=== PATIENT | male | born 1940 | race Caucasian/White ===

== ENCOUNTER → 2017-12-16 08:31 | Outpatient (CLI) | payer MEDICARE, SELFPAY ==
[2017-12-16 10:19] LABS: Add Manual Diff / Slide Review NO; Basophils Percent Auto 0.8 % (0-2); Eosinophils Percent Auto 6.1 % (2-4); Hemoglobin 14.1 g/dL (13.5-17.5); Lymphocytes Percent Auto 21.9 % (25-40); Mean Corpuscular HGB Conc 35.2 % (30-36); Mean Corpuscular Hemoglobin 33.5 PG (26-34); Mean Corpuscular Volume 95.3 fL (80-100); Monocytes Percent Auto 7.1 % (3-14); Neutrophils Absolute Auto 3800 /uL (3000-5900); Neutrophils Percent Auto 64.1 % (50-75); Platelet Count 205 X10^3/uL (150-400); Red Cell Distribution Width 13.8 % (11.6-14.8); White Blood Cell Count 5.9 X10^3/uL (4.5-11.0)
[2017-12-16 10:55] LABS: Appearance Urine UA CLEAR; Bilirubin Urine UA NEGATIVE (NEGATIVE); Blood Urea Nitrogen 18 mg/dL (9-20); Carbon Dioxide 31 mmol/L (22-32); Chloride 103 mmol/L (98-107); Color Urine UA YELLOW; Estimated Glomerular Filt Rate > 60.0 mL/min (>60); Glucose 87 mg/dL (80-110); Glucose Urine UA NEGATIVE (Normal); HEMOLYSIS < 15 (0-50); Ketones Urine UA NEGATIVE (NEGATIVE); Leukocyte Esterase Urine UA 2+ (NEGATIVE); Nitrite Urine UA POSITIVE (Negative); Occult Blood Urine UA TRACE-LYSED (Negative); Potassium 4.4 mmol/L (3.4-5.1); Protein Urine UA NEGATIVE (Negative); Sodium 142 mmol/L (137-145); Specific Gravity Urine UA 1.025 (1.000-1.035); Urobilinogen Urine UA 0.2 E.U./dL (0.2)
[2017-12-16 11:12] LABS: Transferrin 202 mg/dL (206-381)
[2017-12-16 11:23] LABS: Hemoglobin A1C% w Est Avg Glu 5.1 % (4.0-6.0)
[2017-12-16 11:59] LABS: Bacteria Urine Moderate (10-30); RBC Urine 0-1/HPF (0-5/HPF); Squamous Epithelial Cell Urine 0-1 /HPF; WBC Urine 30-100/HPF (0-5/HPF)
[2017-12-16 12:00] LABS: Culture Indicated Urine Specimen Cultured
== END ==
PROVIDERS: PCP Family Medicine; Visit Provider Family Medicine
DX: Z01.818 Encounter for other preprocedural examination (principal); Z01.812 Encounter for preprocedural laboratory examination; D50.0 Iron deficiency anemia secondary to blood loss (chronic); R73.9 Hyperglycemia, unspecified
CPT/HCPCS: 36415; 80048; 81001; 83036; 84466; 85025; 87077; 87086; 87147; 87186; 93005

== ENCOUNTER 2018-01-15 05:50 | Day surgery (SDC) | payer MEDICARE, SELFPAY ==
[2018-01-06 08:37] VITALS: BMI 23.6
[2018-01-15] VITALS (15 sets, daily range): BP systolic 91–157; BP diastolic 53–86; PULSE 53–71; RESP 10–18; TEMP 36.3–37.4; O2SAT 94–98; BMI 23.6
--- NOTE | 2018-01-15 06:30 | DI.RAD.S_ITS ---
PROCEDURE: XR KNEE RT 1TO2V INDICATIONS: Postop total knee TECHNIQUE: 2 view(s) of the knee acquired. COMPARISON: None. FINDINGS: Bones: Patient is status post knee joint arthroplasty. Hardware components are in expected positions. Visualized bony structures are intact. Soft tissues: Overlying postoperative changes are noted. IMPRESSION: Normal alignment after right total knee arthroplasty. Dictated by: Terry Kaye M.D. on 01/15/2018 at 10:41 Approved by: Terry Kaye M.D. on 01/15/2018 at 10:41
[2018-01-15] MEDS: ACETAMINOPHEN 325 MG TABLET 975 MG PO ×3 (06:58→20:12)
[2018-01-15] MEDS: CELECOXIB 200 MG CAPSULE PO (06:58)
[2018-01-15] MEDS: MELOXICAM 7.5 MG TABLET 15 MG PO (06:58)
[2018-01-15] MEDS: LACTATED RINGERS 1,000 ML 42 ML IV ×2 (07:00→09:24)
--- NOTE | 2018-01-15 07:36 | PM.PREOP ---
Pre-operative Note Interval Note Pre-op Check: Yes History & Physical Reviewed by Physician and Yes Exam Performed Changes: No
--- NOTE | 2018-01-15 07:44 | PM.OP.1 ---
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 Non-operative management has failed and the patient has requested total knee replacement. The risks, benefits and alternatives to surgery were discussed with the patient prior to proceeding. Risks discussed included, but were not limited to, failure to relieve pain, stiffness, infection, nerve damage, deep venous thrombosis, pulmonary embolism, stroke, coma, heart attack, permanent paralysis and , as well as the potential need for eventual revision of the prosthetic. Surgeon: Hollis White Criminalist Technician: Millicent Glass Click Yes if Unassisted: No Anesthesia Type: General, Spinal and Local Operative Notes Findings: Significant tricompartmental osteoarthritis. Closure Type: primary Specimen(s): none sent Implants & Drains: Implants used in this procedure were manufactured by the [employer] and [employer] and included the BCS II Journey total knee replacement with a size 7 cobalt chromium femur, size 7 non porous tibial base plate, a 9 mm cross-linked polyethylene tibial insert and a 38 mm oval Yessica II patellar component. Applied: implant(s) Estimated Blood Loss (mL): 50 Blood products transfused: none Tourniquet time (min): 60 Procedure in detail: The patient was seen in the pre-operative area, where the patient identified the right knee as the operative site and this was marked with my initials. The patient received pre-operative antibiotics, and was taken to the operating room and placed on the operative table in the supine position. After satisfactory anesthesia, a circular knitter helper out was performed. The right leg was encircled with a tourniquet about the proximal thigh, and the leg was prepared from the toes to the tourniquet with ChloroPrep in the usual fashion and draped through sterile drapes. The leg was elevated and exsanguinated with Eschmark bandage and the tourniquet inflated to 250 mmHg pressure. The knee was approached through an approximately 18 cm incision centered over the patella and carried into the knee through a medial parapatellar arthrotomy. The anterior osteophytes and soft tissues were removed. The rotational landmarks of [place]'s line and the transepicondylar axis were marked on the femur with electrocautery, and intramedullary guide holes for the femur and tibia were created. The distal femoral cut was made in 6 degrees of valgus using the intramedullary guide at the primary cut setting. The proximal tibial cut was then made using the intramedullary guide, taking 9 mm of bone off the less involved side. The extension gap was checked and the rotation of the femoral component confirmed with the gap balancing system. The anterior, posterior and chamfer cuts were then made. The posterior osteophytes and soft tissues were then removed. The posterior capsule was injected with part of a mixture of 60 ml 0.25% Marcaine mixed with 20 ml Exparel and 4 mg of morphine for post-operative pain control. The remainder of this mixture was injected into the capsule and subcutaneous tissues during cement curing. The tibia was prepared with the rotation set by an extra medullary guide. Trial tibial and femoral components were then placed and the intercondylar notch cut through the femoral trial. Range of motion was 0-135 degrees, with good stability throughout the range. The patella was then cut to accommodate the patellar prosthetic. There was no need for a lateral release. The trials were then removed, and the femoral hole plugged with a bone plug. The bone was prepared with pulsatile lavage, and dried with a sponge. Cement was applied and the final prosthetics placed. Excess cement was removed during and after cement curing. After confirming there was no extruded cement posteriorly, the final tibial insert was placed. The knee was copiously irrigated and the tourniquet deflated. Hemostasis was obtained. The capsule was closed with interrupted # 2 polyester suture. The subcutaneous layer was closed with 3-0 Vicryl, and the skin with a running 3-0 V-Lock suture and SteriStrips. An Aquacel Ag dressing was applied and the patient was taken to recovery having tolerated the procedure well. Complications: none Condition: stable Disposition: PACU Plan for aftercare: The patient will be maintained on a standard total knee replacement protocol with weight bearing as tolerated. The patient will receive aspirin and sequential compression devices for DVT prophylaxis. The patient will be discharged home when safe for the home environment. His Mcnally Path score is 29 and the patient would like to go home today if possible.
[2018-01-15] MEDS: CEFAZOLIN 2 GM/100 ML FROZ.PIGGY IV ×3 (07:50→23:31)
--- NOTE | 2018-01-15 08:26 | SUR.OPER ---
Supine on padded OR bed. Pillow under head, arms secured on padded armboards <90 degree abduction. Safety belt across torso. Non-operative leg secured with tape over blanket over lower leg. Operative leg secured in DeMayo/Bassam positioner. Foam padded brace at thigh of operative leg.
[2018-01-15] MEDS: BUPIVACAINE LIPOSOME 266 MG/20 ML VIAL INJ (08:37)
[2018-01-15] MEDS: BUPIVACAINE 0.25% W/ EPI VIAL 50 ML INJ (08:37)
[2018-01-15] MEDS: TRANEXAMIC ACID 1,000 MG VIAL 1000 MG INJ ×2 (08:37→09:20)
[2018-01-15] MEDS: MORPHINE 4 MG/ML INJ IM (08:39)
--- NOTE | 2018-01-15 10:36 | SUR.PHASEI ---
Report called to LORNA Cyr on acute care floor. Pt in stable condition, vss. pt being transferred to floor at this time.
--- NOTE | 2018-01-15 10:50 | SUR.PHASEI ---
Transfered pt to acute care floor in stable condition. Pt alert and talking to Rn during transport. Transfered care of pt to LORNA Cyr at that time.
[2018-01-15] MEDS: LACTATED RINGERS 1,000 ML 125 ML IV ×2 (11:35→20:07)
--- NOTE | 2018-01-15 12:04 | CM.DANOTE ---
Discharge Planning/Care Management DCP: assessment: case received, EMR reviewed and went to room this morning to see pt for introduction of self and role. Room empty: confirmed that pt was still in PACU. Pt is a 77 year old male who admitted this morning for a planned R TKA. Payer: [facility] Surgeon: Dr. White PCP: Dr. Price. See now that Dr. White has completed op report at 1000 and does anticipate that pt may be able to d/c home today. PT will be seeing him once he arrives to floor/rm 210. Will be following prn to assist with d/c issues and options that may arise. CM Discharge Assessment Start: 01/15/18 12:02 Freq: Status: Active Protocol: Document 01/15/18 12:02 ITV (Rec: 01/15/18 12:03 ITV [id number]) Discharge Planning Assessment Prior Living Arrangements House Household Members spouse Independent with ADL's Yes Is patient alert and oriented? Yes Whiteboard Updated in Patient Room with Yes name and ext. # of Pleater Hand Review Status In Process Next Review Type Continued Stay Review Pre-Anesthesia Assessment Start: 01/06/18 08:37 Freq: Status: Active Protocol: Document 01/06/18 08:37 CAB (Rec: 01/06/18 09:18 CAB [id number]) Pre-Anesthesia Assessment Patient Information Reviewed Via Phone Assessment Assessment Completed With Patient Lab Results CBC EKG Electrolytes Primary Care Provider Baljit Price Seen Specialist in Last 12 Months Yes Specialist Seen Orthopedist Primary Language Lithuanian Laundry Washer Required No Height 182.88 cm Weight 78.925 kg Body Mass Index (BMI) 23.6 Hearing Ability Hard of Hearing Use of Hearing Aid Visual Assist Magnifying Glass Dentition Type Teeth, Natural Present Barriers to Learning None Other Aids No Hx Anesthesia Reactions No Hx Family Anesthesia Reaction No Hx Malignant Hyperthermia No Hx Blood Transfusions Yes: r/t back surgery Hx Blood Transfusion Reaction No Anesthesia Review Requested No Professor Of Business Administration No alcohol intake current alcohol intake frequency a few times a week Smoking Status Never smoker Substance Use Type marijuana Comment Edible marijuana only Pain Present Denied Pain History of Falling (Recent or History of No ) Patient is completely paralyzed or No completely immobile Prosthesis or Orthotic Device Cane Front Wheel Walker Mental Status Oriented to own ability Comment Pt denies any difficulty walking, denies pain Is patient on oxygen? No Does patient have SHIRLEY/SOB No Hx Sleep Apnea No Suspected Sleep Apnea No Currently Taking a Beta Joselyn No Can You Climb a Flight of Stairs Without Yes SOB Hx Chest Pain No Hx SOB No Hx Syncope or Dizziness No Anti-Coagulant Therapy No Has a Health Researcher No Cardiac Testing No Hx Pacemaker/ICD No Pacemaker Rep Required? No Cardiac Clearance Received Not Applicable Comment Pt advised by surgeon to continue ASA 325mg up to surgery Diet Type At Home Regular dysphagia No Urinary Catheter Present No Hx Urinary Self Catheterization No Diabetes No HgbA1C 5.1 Date 12/16/17 Hx Drug Resistant Organism No Presence of External or Internal Medical No Devices Have you traveled outside the [facility] in the last 30 days? Marital Status Lives With spouse Prior Living Arrangements House Number of Floors (Floors) Two Floors Number of Stairs To Enter/Railing? 2 stairs, railing Support System Spouse Does the Patient Have Assistance After Yes Surgery Patient Discharge Plan Description Return Home Comment Pt advised possible discharge same day surgery per surgeon Feels Safe in Current Environment Yes Been Physically Hurt or Threatened By a No Person in Current Environment Do you have thoughts of harming yourself None or others? Are you currently considering suicide? No Do you have a plan to hurt yourself or No Plan others? Do You Have Any Spiritual Beliefs That No May Affect Your HC Choices? Do You Have Any Cultural Practices That No May Affect Your HC Choices? Spiritual Referral None Who Can We Speak to About Patient's Care Alyce only Identifying Code for Release of Patient Declines to issue Information Health Care Proxy/Next of Kin Alyce () Health Care Proxy Emergency Contact Name Alyce () Emergency Contact Advance Directives? Yes Advance Directives on File Yes Power of Wallpaper Printer Yes Power of Wallpaper Printer Name Alyce () Power of Wallpaper Printer PAC Instructions Durable medical equipment Medications to take/avoid Nasal antibiotic No ETOH/petroleum product on skin DOS NPO Post-op transportation Pre-surgical wash Sensory aids Sturdy shoes/comfortable clothes Do not bring valuables and remove jewelry Discharge Planning/Care Management CM Discharge Assessment Start: 01/15/18 12:02 Freq: Status: Active Protocol: Document 01/15/18 12:02 ITV (Rec: 01/15/18 12:03 ITV [id number]) Discharge Planning Assessment Prior Living Arrangements House Household Members spouse Independent with ADL's Yes Is patient alert and oriented? Yes Whiteboard Updated in Patient Room with Yes name and ext. # of Pleater Hand Review Status In Process Next Review Type Continued Stay Review Pre-Anesthesia Assessment Start: 01/06/18 08:37 Freq: Status: Active Protocol: Document 01/06/18 08:37 CAB (Rec: 01/06/18 09:18 CAB [id number]) Pre-Anesthesia Assessment Patient Information Reviewed Via Phone Assessment Assessment Completed With Patient Lab Results CBC EKG Electrolytes Primary Care Provider Baljit Price Seen Specialist in Last 12 Months Yes Specialist Seen Orthopedist Primary Language Lithuanian Laundry Washer Required No Height 182.88 cm Weight 78.925 kg Body Mass Index (BMI) 23.6 Hearing Ability Hard of Hearing Use of Hearing Aid Visual Assist Magnifying Glass Dentition Type Teeth, Natural Present Barriers to Learning None Other Aids No Hx Anesthesia Reactions No Hx Family Anesthesia Reaction No Hx Malignant Hyperthermia No Hx Blood Transfusions Yes: r/t back surgery Hx Blood Transfusion Reaction No Anesthesia Review Requested No Professor Of Business Administration No alcohol intake current alcohol intake frequency a few times a week Smoking Status Never smoker Substance Use Type marijuana Comment Edible marijuana only Pain Present Denied Pain History of Falling (Recent or History of No ) Patient is completely paralyzed or No completely immobile Prosthesis or Orthotic Device Cane Front Wheel Walker Mental Status Oriented to own ability Comment Pt denies any difficulty walking, denies pain Is patient on oxygen? No Does patient have SHIRLEY/SOB No Hx Sleep Apnea No Suspected Sleep Apnea No Currently Taking a Beta Joselyn No Can You Climb a Flight of Stairs Without Yes SOB Hx Chest Pain No Hx SOB No Hx Syncope or Dizziness No Anti-Coagulant Therapy No Has a Health Researcher No Cardiac Testing No Hx Pacemaker/ICD No Pacemaker Rep Required? No Cardiac Clearance Received Not Applicable Comment Pt advised by surgeon to continue ASA 325mg up to surgery Diet Type At Home Regular dysphagia No Urinary Catheter Present No Hx Urinary Self Catheterization No Diabetes No HgbA1C 5.1 Date 12/16/17 Hx Drug Resistant Organism No Presence of External or Internal Medical No Devices Have you traveled outside the [facility] in the last 30 days? Marital Status Lives With spouse Prior Living Arrangements House Number of Floors (Floors) Two Floors Number of Stairs To Enter/Railing? 2 stairs, railing Support System Spouse Does the Patient Have Assistance After Yes Surgery Patient Discharge Plan Description Return Home Comment Pt advised possible discharge same day surgery per surgeon Feels Safe in Current Environment Yes Been Physically Hurt or Threatened By a No Person in Current Environment Do you have thoughts of harming yourself None or others? Are you currently considering suicide? No Do you have a plan to hurt yourself or No Plan others? Do You Have Any Spiritual Beliefs That No May Affect Your HC Choices? Do You Have Any Cultural Practices That No May Affect Your HC Choices? Spiritual Referral None Who Can We Speak to About Patient's Care Alyce only Identifying Code for Release of Patient Declines to issue Information Health Care Proxy/Next of Kin Alyce () Health Care Proxy Emergency Contact Name Alyce () Emergency Contact Advance Directives? Yes Advance Directives on File Yes Power of Wallpaper Printer Yes Power of Wallpaper Printer Name Alyce () Power of Wallpaper Printer PAC Instructions Durable medical equipment Medications to take/avoid Nasal antibiotic No ETOH/petroleum product on skin DOS NPO Post-op transportation Pre-surgical wash Sensory aids Sturdy shoes/comfortable clothes Do not bring valuables and remove jewelry
--- NOTE | 2018-01-15 14:13 | PC.NURSE ---
POST OP ARRIVAL - arrived alert, no pain initially, able wiggle feet and +cms, sensation along rle, aquacell w/valentina wrap over cdi, LR started 125mg, bs clear, hr reg, 02 sat 92-94% RA, no nausea, +bt, and brenna light lunch, scd's on, vs stable, after lunch given 975mg po tylenol for ache 3 on scale 0/10, ice pack.
--- NOTE | 2018-01-15 15:21 | PM.PNPO.1 ---
Subjective Date Patient Seen: 01/15/18 Time Patient Seen: 15:00 Interval history: Patient seen bedside s/p R. TKA POD #0. He is doing well, he has not been seen by PT yet due to his spinal being in effect. He is resting comfortably with no pain at this time. Exam Vital Signs (past 8 hours): - 01/15/18 10:02 01/15/18 10:07 01/15/18 10:12 Temperature 99.3 F Pulse Rate 56 L 61 61 Respiratory Rate 14 15 12 Blood Pressure 92/53 L 102/55 L 91/53 L Pulse Oximetry 95 94 94 01/15/18 10:17 01/15/18 10:22 01/15/18 10:33 Temperature 97.7 F 97.7 F Pulse Rate 56 L 57 L 55 L Respiratory Rate 16 10 L 12 Blood Pressure 96/55 L 104/60 110/62 Pulse Oximetry 96 94 94 01/15/18 10:41 01/15/18 11:07 01/15/18 11:40 Temperature 97.5 F L 97.4 F L 97.4 F L Pulse Rate 54 L 53 L 53 L Respiratory Rate 18 18 16 Blood Pressure 111/70 116/56 L 115/68 Pulse Oximetry 94 96 97 01/15/18 12:40 01/15/18 13:40 Temperature 98.0 F 97.5 F L Pulse Rate 65 66 Respiratory Rate 16 17 Blood Pressure 119/67 127/73 Pulse Oximetry 96 97 Oxygen Delivery Method Room Air Oxygen Flow Rate 0 Narrative Exam Narrative: WDWN NAD A&Ox3. Dressing is clean, dry, and intact with no signs of drainage. He has full ROM of the toes and ankles. Calves are soft and compressible. Assessment & Plan Post-op Postoperative Procedures Operation Date: 01/15/18 07:45 Actual Procedures Side Surgeon p Total Knee Arthroplasty Right Hollis White MD Patient is doing well, begin ambulating with assistance once spinal wears off. Continue pain control, DVT prophylaxis with SCDs and ASA. Probable discharge tomorrow once cleared by physical therapy. Time Spent With Patient less than 15 minutes Quality VTE Deep Vein Thrombosis/Pulmonary Embolism Present on Admission: No
--- NOTE | 2018-01-15 15:23 | PT.IIE ---
Current Diagnoses Bilateral primary osteoarthritis of knee (01/15/18) Surgery Performed Operation Date: 01/15/18 07:45 Actual Procedures p Total Knee Arthroplasty(Right) - Hollis White MD Surgical History (Last Updated 01/06/18 @ 08:46 by Corina Silva, RN) History of total left hip arthroplasty (Acute) History of total right hip arthroplasty (Acute) S/P arthroscopy of right knee (Acute) S/P cervical spinal fusion (Acute) S/P lumbar fusion (Acute) Medical History (Last Updated 01/06/18 @ 09:17 by Corina Silva RN) BPH (benign prostatic hyperplasia) (Acute) Glaucoma (Acute) Physical Therapy Inpatient Evaluation/Re-Eval M1 PT/OT-IP Prior Functional Status Start: 01/15/18 17:17 Freq: NEEDED Status: Active Protocol: Document 01/15/18 15:23 AB (Rec: 01/15/18 17:29 AB [id number]) Medical Review Prior Functional Status Medical History Reviewed Yes Communication able to make needs known Mobility and Gait pt staed that he is independent with all mobilities and ambulation without AD Social History Household Members spouse Living Arrangements House Number of Floors (Floors) Two Floors Number of Stairs To Enter/Railing? has 3 steps to enter with L rail ascending has 1 flight of steps with R rail ascending to the 2nd floor Home Environment Standard Height Toilet Tub/Shower Home Equipment Front Wheel Walker Straight Cane Employment Status Retired M2 PT-IP Current Condition Start: 01/15/18 17:17 Freq: NEEDED Status: Active Protocol: Document 01/15/18 15:23 AB (Rec: 01/15/18 17:29 AB [id number]) Physical Therapy Current Condition Current Condition Evaluation Date 01/15/18 Treatment Diagnosis s/p R TKA Onset Date 01/15/18 Weight Bearing Status Weight Bearing Status Weight Bear as Tolerated M3 PT-IP Subjective Start: 01/15/18 17:17 Freq: NEEDED Status: Active Protocol: Document 01/15/18 15:23 AB (Rec: 01/15/18 17:29 AB [id number]) Subjective Physical Therapy Visit Type Type Initial Evaluation Visit Start Time 15:23 Visit Stop Time 15:47 Total Visit Minutes 24 Number of ORTHOPEDIC SHOE FITTER Visits 0 Physical Therapy Visit Comments Patient Comments I am still numb on back and groin area Therapy Pain Assessment Pain When Pain Assessed During Mobility Location Right Knee Intensity 3 Scale Used Numeric (1 - 10) Description With Movement Pain Management Techniques Apply Cold Re-positioning Timing of Activity with Medications M4 PT-IP Mobility and Gait Start: 01/15/18 17:17 Freq: NEEDED Status: Active Protocol: Document 01/15/18 15:23 AB (Rec: 01/15/18 17:29 AB [id number]) PT-Bed Mobility Assessment Supine to Sit Supine to Sit Standby Assistance Sit to Supine Sit to Supine Standby Assistance Scooting Scooting to Edge of Bed Standby Assistance Scooting Up and Down in Bed Standby Assistance PT-Transfer Assessment Sit to and From Stand Sit to and from Stand Contact Guard Assistance Equipment Transfer Assistive Device Gait Belt Front Wheeled Walker Orthotic/Prosthetic Devices or Brace: No Gait Assessment Gait Gait Assistance Required: Contact Guard Assist Distance (Feet) 30 Able to Maintain Weight Bearing Status Yes During Gait Assistive Devices Assistive Device Gait Belt Front Wheeled Walker Orthotic/Prosthetic Devices or Brace: No Gait Deviations General Gait Pattern Decreased Stride Length Decreased Feet Clearance Factors Limiting Gait Function Factors Limiting Gait Function Decreased Activity Tolerance Decreased Sensation Decreased Strength Limited Range of Motion Pain Poor Balance PT-Balance Assessment Sitting Balance and Reactions Static Sitting Balance Ability Good Dynamic Sitting Balance Ability Good Standing Balance and Reactions Static Standing Balance Ability Fair Dynamic Standing Balance Ability Fair Device Used FWW M5 PT-IP Objective Assessments Start: 01/15/18 17:17 Freq: NEEDED Status: Active Protocol: Document 01/15/18 15:23 AB (Rec: 01/15/18 17:29 AB [id number]) Orientation Orientation/Cognition Level of Alertness Alert Orientation Name Age Birthday Month Date Year Day of Week Place Situation Language Function Ability No Deficits Noted Safety Awareness Understands Safety Issues Memory Description No Deficits Noted Gross Range of Motion Lower Extremity ROM Assessment Right Impaired Impairments R knee flexion ~ 45 degrees Strength Lower Extremity Strength Assessment Right Impaired Knee 4-/5 M6 PT-IP Treatment Start: 01/15/18 17:17 Freq: NEEDED Status: Active Protocol: Document 01/15/18 15:23 AB (Rec: 01/15/18 17:29 AB [id number]) Physical Therapy Treatment Education Education Provided Precautions Weight Bearing Status Post-Op Packet Safety M7 PT-IP Assessment and Plan Start: 01/15/18 17:17 Freq: NEEDED Status: Active Protocol: Document 01/15/18 15:23 AB (Rec: 01/15/18 17:29 AB [id number]) PT Summary Assessment and Plan Potential Rehabilitation Potential Good Status of Condition at Evaluation Stable Summary Impairments Pain ROM Strength Balance Coordination Sensation Bed Mobility Transfers Gait Activity Tolerance Assessment Summary Pt requiring CGA with mobility and plans to go home with spouse to assist him. pt opted to stay here in the hospital for tonight and plans to go home tomorrow. refused stair training today and wants to do it tomorrow and when able to safely complete, may go home with spouse to assist him. pt stated that he is set up for outpt PT already. Goals Bed Mobility Goal Independent Transfer Goal Independent Front Wheeled Walker Gait Goal Independent Front Wheel Walker Gait Distance 150 Other Goals Short term goals: increase ambulation using FWW mod I up to 250 ft. terminal press operator goal: up/down 3 steps L rail SBA; 1 flight of steps with R rail ascending SBA Days to Meet Goals 3 Frequency of Treatment Frequency Of Treatment Twice a Day Treatment Plan Physical Therapy Treatment Plan Bed Mobility Training Transfer Training Gait Training Therapeutic Exercise Balance Retraining Post Op Education Discharge Planning Hot or Cold Pack Neuromuscular Re-ed Coordination Retraining Manual Therapy Other Recommendations and Next Treatment ambulation, stair climbing Focus Recommendations To Nursing Amount of Assist Needed 1 Person Assist Discharge Recommendations PT Discharge Recommendations Home with Assistance Outpatient PT
[2018-01-15] MEDS: OXYCODONE IR 5 MG TABLET PO ×2 (15:51→20:12)
--- NOTE | 2018-01-15 17:29 | PT.IIE ---
Current Diagnoses Bilateral primary osteoarthritis of knee (01/15/18) Surgery Performed Operation Date: 01/15/18 07:45 Actual Procedures p Total Knee Arthroplasty(Right) - Hollis White MD Surgical History (Last Updated 01/06/18 @ 08:46 by Corina Silva, RN) History of total left hip arthroplasty (Acute) History of total right hip arthroplasty (Acute) S/P arthroscopy of right knee (Acute) S/P cervical spinal fusion (Acute) S/P lumbar fusion (Acute) Medical History (Last Updated 01/06/18 @ 09:17 by Corina Silva RN) BPH (benign prostatic hyperplasia) (Acute) Glaucoma (Acute) Physical Therapy Inpatient Evaluation/Re-Eval M1 PT/OT-IP Prior Functional Status Start: 01/15/18 17:17 Freq: NEEDED Status: Active Protocol: Document 01/15/18 15:23 AB (Rec: 01/15/18 17:29 AB [id number]) Medical Review Prior Functional Status Medical History Reviewed Yes Communication able to make needs known Mobility and Gait pt staed that he is independent with all mobilities and ambulation without AD Social History Household Members spouse Living Arrangements House Number of Floors (Floors) Two Floors Number of Stairs To Enter/Railing? has 3 steps to enter with L rail ascending has 1 flight of steps with R rail ascending to the 2nd floor Home Environment Standard Height Toilet Tub/Shower Home Equipment Front Wheel Walker Straight Cane Employment Status Retired M2 PT-IP Current Condition Start: 01/15/18 17:17 Freq: NEEDED Status: Active Protocol: Document 01/15/18 15:23 AB (Rec: 01/15/18 17:29 AB [id number]) Physical Therapy Current Condition Current Condition Evaluation Date 01/15/18 Treatment Diagnosis s/p R TKA Onset Date 01/15/18 Weight Bearing Status Weight Bearing Status Weight Bear as Tolerated M3 PT-IP Subjective Start: 01/15/18 17:17 Freq: NEEDED Status: Active Protocol: Document 01/15/18 15:23 AB (Rec: 01/15/18 17:29 AB [id number]) Subjective Physical Therapy Visit Type Type Initial Evaluation Visit Start Time 15:23 Visit Stop Time 15:47 Total Visit Minutes 24 Number of UM RN Visits 0 Physical Therapy Visit Comments Patient Comments I am still numb on back and groin area Therapy Pain Assessment Pain When Pain Assessed During Mobility Location Right Knee Intensity 3 Scale Used Numeric (1 - 10) Description With Movement Pain Management Techniques Apply Cold Re-positioning Timing of Activity with Medications M4 PT-IP Mobility and Gait Start: 01/15/18 17:17 Freq: NEEDED Status: Active Protocol: Document 01/15/18 15:23 AB (Rec: 01/15/18 17:29 AB [id number]) PT-Bed Mobility Assessment Supine to Sit Supine to Sit Standby Assistance Sit to Supine Sit to Supine Standby Assistance Scooting Scooting to Edge of Bed Standby Assistance Scooting Up and Down in Bed Standby Assistance PT-Transfer Assessment Sit to and From Stand Sit to and from Stand Contact Guard Assistance Equipment Transfer Assistive Device Gait Belt Front Wheeled Walker Orthotic/Prosthetic Devices or Brace: No Gait Assessment Gait Gait Assistance Required: Contact Guard Assist Distance (Feet) 30 Able to Maintain Weight Bearing Status Yes During Gait Assistive Devices Assistive Device Gait Belt Front Wheeled Walker Orthotic/Prosthetic Devices or Brace: No Gait Deviations General Gait Pattern Decreased Stride Length Decreased Feet Clearance Factors Limiting Gait Function Factors Limiting Gait Function Decreased Activity Tolerance Decreased Sensation Decreased Strength Limited Range of Motion Pain Poor Balance PT-Balance Assessment Sitting Balance and Reactions Static Sitting Balance Ability Good Dynamic Sitting Balance Ability Good Standing Balance and Reactions Static Standing Balance Ability Fair Dynamic Standing Balance Ability Fair Device Used FWW M5 PT-IP Objective Assessments Start: 01/15/18 17:17 Freq: NEEDED Status: Active Protocol: Document 01/15/18 15:23 AB (Rec: 01/15/18 17:29 AB [id number]) Orientation Orientation/Cognition Level of Alertness Alert Orientation Name Age Birthday Month Date Year Day of Week Place Situation Language Function Ability No Deficits Noted Safety Awareness Understands Safety Issues Memory Description No Deficits Noted Gross Range of Motion Lower Extremity ROM Assessment Right Impaired Impairments R knee flexion ~ 45 degrees Strength Lower Extremity Strength Assessment Right Impaired Knee 4-/5 M6 PT-IP Treatment Start: 01/15/18 17:17 Freq: NEEDED Status: Active Protocol: Document 01/15/18 15:23 AB (Rec: 01/15/18 17:29 AB [id number]) Physical Therapy Treatment Education Education Provided Precautions Weight Bearing Status Post-Op Packet Safety M7 PT-IP Assessment and Plan Start: 01/15/18 17:17 Freq: NEEDED Status: Active Protocol: Document 01/15/18 15:23 AB (Rec: 01/15/18 17:29 AB [id number]) PT Summary Assessment and Plan Potential Rehabilitation Potential Good Status of Condition at Evaluation Stable Summary Impairments Pain ROM Strength Balance Coordination Sensation Bed Mobility Transfers Gait Activity Tolerance Assessment Summary Pt requiring CGA with mobility and plans to go home with spouse to assist him. pt opted to stay here in the hospital for tonight and plans to go home tomorrow. refused stair training today and wants to do it tomorrow and when able to safely complete, may go home with spouse to assist him. pt stated that he is set up for outpt PT already. Goals Bed Mobility Goal Independent Transfer Goal Independent Front Wheeled Walker Gait Goal Independent Front Wheel Walker Gait Distance 150 Other Goals up/down 3 steps L rail SBA; 1 flight of steps with R rail ascending SBA Frequency of Treatment Frequency Of Treatment Twice a Day Treatment Plan Physical Therapy Treatment Plan Bed Mobility Training Transfer Training Gait Training Therapeutic Exercise Balance Retraining Post Op Education Discharge Planning Hot or Cold Pack Neuromuscular Re-ed Coordination Retraining Manual Therapy Other Recommendations and Next Treatment ambulation, stair climbing Focus Recommendations To Nursing Amount of Assist Needed 1 Person Assist Discharge Recommendations PT Discharge Recommendations Home with Assistance Outpatient PT
[2018-01-15] MEDS: TIMOLOL 0.5% OPHTH 1 DROPS EYE-BOTH (20:08)
[2018-01-15] MEDS: TAMSULOSIN 0.4 MG CAPSULE 0.8 MG PO (20:13)
[2018-01-15] MEDS: ATORVASTATIN 10 MG TABLET PO (20:13)
[2018-01-15] MEDS: BIMATOPROST 0.01% OPHTH 2.5 ML 1 DROPS EYE-BOTH (20:14)
--- NOTE | 2018-01-15 21:52 | PC.NURSE ---
SHIFT NOTE A&Ox3, pleasant and cooperative. R knee dressing with JUNE wrap dressing intact. CMS intact. ambulates with 1PA and FWW. pt states numbness to buttock and groin area, pt unable to void when out of bed with PT. pt educated on possible need for urinary catheter which pt and pt's refused (pt with history of BPH and retention issues in the past requiring urology consult). pt continues to have urinary retention issues after numbness to groin/buttock area wore off, despite ambulating to bathroom and standing at bedside to void. pt voiding about 50ml every 15 minutes with post-void residual showing >650ml of urine but pt still refusing to have catheter placed. Dr. Damon notified of urinary retention; as long as pt is voiding, okay to monitor for now and no need for a urologist consult. c/o minimal pain to R knee, rated 2-3/10. call light within reach.
--- NOTE | 2018-01-15 23:48 | PC.NURSE ---
Addendum entered by Annette Quiroga R.N. 01/16/18 05:56: Has been urinating, per patient, frequently in small amounts with urinal emptied of 375cc earlier (does not call staff to empty each time he has voided). States pain is 2/10 and declines offer of pain medication. Original Note: Patient is alert and oriented but TIMBI-[place] SHOSH[place]. Breath sounds CTA with RA sat of 96%. HRR. Denies nausea. BT present and is passing flatus. Having problems with urinary retention related to hx BPH so has been voiding in small frequent amounts but declining to be straight cathed despite PVR of > 650; MD is aware. Independent with bed mobility and is standing at side of bed to urinate. Fall risk score is moderate but because of need to urinate often patient does not want alarm on and appears to be steady on feet; instructed to only stand at side of bed and not to do more without staff assist and patient verbalizes understanding. Aquacel dressing to right knee with dark drainage on distal end of dressing; Aquacel is wrapped with valentina. States pain is 2/10 and tolerable. CMS is intact with all sensation returned to normal. Refusing SCD's so reminded to ankle wave when awake; again, verbalizes understanding.
[2018-01-16 04:00] VITALS: BP 128/79; PULSE 65; RESP 18; TEMP 36.5; O2SAT 99
[2018-01-16 07:37] LABS: Hemoglobin 12.5 g/dL (13.5-17.5)
[2018-01-16] MEDS: SODIUM CHLORIDE 0.9% FLUSH 10 ML IV (08:26)
[2018-01-16] MEDS: DOCUSATE 100 MG CAPSULE PO (08:26)
[2018-01-16] MEDS: TIMOLOL 0.5% OPHTH 1 DROPS EYE-BOTH (08:26)
[2018-01-16] MEDS: ASPIRIN 325 MG TABLET PO (08:26)
[2018-01-16] MEDS: ACETAMINOPHEN 325 MG TABLET 975 MG PO (08:26)
[2018-01-16 08:35] VITALS: BP 142/75; PULSE 74; RESP 17; TEMP 37.2; O2SAT 96
--- NOTE | 2018-01-16 09:13 | PT.IPTN ---
Current Diagnoses Bilateral primary osteoarthritis of knee (01/15/18) Surgery Performed Operation Date: 01/15/18 07:45 Actual Procedures p Total Knee Arthroplasty(Right) - Hollis White MD Physical Therapy Treatment Note M2 PT-IP Current Condition Start: 01/15/18 17:17 Freq: NEEDED Status: Discharge Protocol: Document 01/15/18 15:23 AB (Rec: 01/15/18 17:29 AB [id number]) Physical Therapy Current Condition Current Condition Evaluation Date 01/15/18 Treatment Diagnosis s/p R TKA Onset Date 01/15/18 Weight Bearing Status Weight Bearing Status Weight Bear as Tolerated M3 PT-IP Subjective Start: 01/15/18 17:17 Freq: NEEDED Status: Discharge Protocol: Document 01/16/18 09:13 AB (Rec: 01/16/18 12:48 AB [id number]) Subjective Physical Therapy Visit Type Type Treatment Note Visit Start Time 09:13 Visit Stop Time 09:23 Total Visit Minutes 10 Number of COST CONTROL SUPERVISOR Visits 0 Physical Therapy Visit Comments Patient Comments pt agreeable to do PT Therapy Pain Assessment Pain When Pain Assessed At Rest Pain Present Pain Present Pain Reported Location Right Knee Intensity 2 Scale Used Numeric (1 - 10) Pain Management Techniques Timing of Activity with Medications M4 PT-IP Mobility and Gait Start: 01/15/18 17:17 Freq: NEEDED Status: Discharge Protocol: Document 01/16/18 09:13 AB (Rec: 01/16/18 12:48 AB [id number]) PT-Bed Mobility Assessment Supine to Sit Supine to Sit Independent Sit to Supine Sit to Supine Independent PT-Transfer Assessment Sit to and From Stand Sit to and from Stand Standby Assistance Equipment Transfer Assistive Device Gait Belt Front Wheeled Walker Gait Assessment Gait Gait Assistance Required: Standby Assistance Distance (Feet) 250 Able to Maintain Weight Bearing Status Yes During Gait Assistive Devices Assistive Device Gait Belt Front Wheeled Walker Orthotic/Prosthetic Devices or Brace: No Gait Deviations General Gait Pattern Antalgic Factors Limiting Gait Function Factors Limiting Gait Function Decreased Strength Stair Climbing Assessment Evaluation Level of Assist On Stairs Standby Assistance Devices Stair Climbing Assistive Devices Right Railing Technique/Endurance Stair Climbing Direction Ascend and Descend Stair Climbing Technique Step to Step Number of Steps Climbed 3 Query Text: Stair Climbing Set # Repetitions (reps) 4 M5 PT-IP Objective Assessments Start: 01/15/18 17:17 Freq: NEEDED Status: Discharge Protocol: Document 01/15/18 15:23 AB (Rec: 01/15/18 17:29 AB [id number]) Orientation Orientation/Cognition Level of Alertness Alert Orientation Name Age Birthday Month Date Year Day of Week Place Situation Language Function Ability No Deficits Noted Safety Awareness Understands Safety Issues Memory Description No Deficits Noted Gross Range of Motion Lower Extremity ROM Assessment Right Impaired Impairments R knee flexion ~ 45 degrees Strength Lower Extremity Strength Assessment Right Impaired Knee 4-/5 M6 PT-IP Treatment Start: 01/15/18 17:17 Freq: NEEDED Status: Discharge Protocol: Document 01/16/18 12:48 AB (Rec: 01/16/18 12:49 AB [id number]) Physical Therapy Treatment Other Treatments Other Treatment Performed reviewed HEP and pt stated that he knows the exercises . M7 PT-IP Assessment and Plan Start: 01/15/18 17:17 Freq: NEEDED Status: Discharge Protocol: Document 01/16/18 09:13 AB (Rec: 01/16/18 12:48 AB [id number]) PT Summary Assessment and Plan Potential Rehabilitation Potential Good Summary Impairments Pain ROM Strength Balance Coordination Sensation Transfers Gait Activity Tolerance Progress Towards Goals Progressing Toward Goals Assessment Summary pt is doing well with mobility and plans to go home today with spouse to assist him. pt is set up for outpt PT. Goals Bed Mobility Goal Independent Transfer Goal Independent Front Wheeled Walker Gait Goal Independent Front Wheel Walker Gait Distance 150 Other Goals Short term goals: increase ambulation using FWW mod I up to 250 ft. detention goal: up/down 3 steps L rail SBA; 1 flight of steps with R rail ascending SBA Days to Meet Goals 3 Frequency of Treatment Frequency Of Treatment Twice a Day Treatment Plan Physical Therapy Treatment Plan Bed Mobility Training Transfer Training Gait Training Therapeutic Exercise Balance Retraining Post Op Education Discharge Planning Hot or Cold Pack Neuromuscular Re-ed Coordination Retraining Manual Therapy Other Recommendations and Next Treatment ambulation, stair climbing Focus Recommendations To Nursing Amount of Assist Needed 1 Person Assist Discharge Recommendations PT Discharge Recommendations Home with Assistance Outpatient PT
--- NOTE | 2018-01-16 09:45 | P.DS_ITS ---
History of Present Illness Date Patient Seen: 01/16/18 Time Patient Seen: 09:42 Chief complaint: *OPB* [id number] Narrative: Patient's pain is mild. Denies fever chills. Patient ready for discharge home today is safe to do so. Patient's is home to assist him. Patient has been up ambulating with physical therapy. Patient has been able to urinate on his own. Was unable to go home last night secondary to spinal being slow to wear off not able to urinate. Discharge Providers Primary care physician: Baljit Price MD Consults: 01/15/18 11:07 Consult to Discharge Planning Routine Comment: Consult to Physical Therapy Evaluate & Treat Comment: Physician Instructions: postop TKA protocol Discharge provider: Abelardo Isabel PA-C Discharge Date: 01/16/18 Summary Discharge Diagnosis: Status post right total knee arthroplasty Hospital Course: Patient admitted to the hospital for right total knee arthroplasty. Conservative treatment failed for severe right knee osteoarthritis. Patient admitted to the hospital and consented to the above- mentioned procedure. Patient taken to the operating room underwent right total knee arthroplasty. Patient back in his room recovering well and is in stable condition. Patient was unable to urinate prior to discharge yesterday evening. He was held overnight and has been able to urinate on his own. Patient to be maintained on a standard total knee replacement protocol with weight-bearing as tolerated. Status at Discharge Functional status at discharge: uses cane/walker Overall status at discharge: patient is progressing back to baseline Time Spent with Patient Less than 30 minutes Exam Vital Signs (past 8 hours): - 01/16/18 04:00 01/16/18 08:35 Temperature 97.7 F 98.9 F Pulse Rate 65 74 Respiratory Rate 18 17 Blood Pressure 128/79 142/75 H Pulse Oximetry 99 96 Oxygen Delivery Method Room Air Oxygen Flow Rate 0 Narrative Exam Narrative: 77-year-old male in no apparent distress resting comfortably in bed. Right knee dressing is clean, dry and intact. Sensation grossly intact to light touch distal right lower extremity. Motor function is intact right lower extremity. Objective Labs Result Diagrams: 01/16/18 07:20 Labs: Laboratory Results - last 24 hr 01/16/18 07:20 Hgb 12.5 L Hct 36.0 L Discharge Plan Discharge Plan Patient Disposition: Home Discharge comment: DC home today Discharge Med Rec/Prescriptions Prescriptions: Continue aspirin 325 mg Tablet 325 mg PO DAILY RF: 0 tamsulosin 0.4 mg Capsule 0.8 mg PO BEDTIME RF: 0 timolol maleate 0.5 % Drops 1 drp EYE-BOTH BID RF: 0 bimatoprost [Lumigan] 0.01 % Drops 1 drp EYE-BOTH BEDTIME RF: 0 atorvastatin 10 mg PO BEDTIME RF: 0 Discharge Orders: Discharge (Order); Ordered 01/16/18 Ordered By: Abelardo Isabel Provider Discharge Instructions Diet: Diet as Tolerated Activity: WBAT Cold/Heat Therapy: ice as needed Skin/Wound/Dressing Care Dressing: Keep clean and dry Visit Report/Discharge Packet Stand Alone Forms: Surgery Discharge Discharge Data Primary Care Provider: Baljit Price Attending Provider: Hollis White VTE Deep Vein Thrombosis/Pulmonary Embolism Present on Admission: No
--- NOTE | 2018-01-16 10:40 | PC.NURSE ---
Pt is dressed and ready for discharge home with spouse. Pt has already worked with P.T. and has been cleared. HL removed. Went over d/c instructions with Pt and Spouse-discussed d/c meds, time of last dose, encouraged fluid intake to prevent constipation. Pt denies further questions and was taken out to POV via w/c by CORRECTIONAL OFFICER CAPTAIN with Spouse and all belongings.
== END 2018-01-16 10:42 | disposition home or self-care (01) ==
LOC: OR 05:53 → AC 05:54
PROVIDERS: PCP Family Medicine; Visit Provider Orthopaedic Surgery
PROC: 0SRC0JZ Replacement of Right Knee Joint with Synthetic Substitute, Open Approach (ICD-10-PCS; CPT 27447; principal; 2018-01-15 07:45)
DX: M17.11 Unilateral primary osteoarthritis, right knee (principal); M11.261 Other chondrocalcinosis, right knee
CPT/HCPCS: 27447; 36415; 73560; 85014; 85018; 97116; 97161; C1776; C9290; J0690; J1100; J2250; J2270; J2405; J2704; J3010

== ENCOUNTER 2018-02-01 11:48 | Day surgery (SDC) | payer MEDICARE, SELFPAY ==
[2018-01-15 11:20] VITALS: BMI 23.6
[2018-02-01] VITALS (8 sets, daily range): BP systolic 107–159; BP diastolic 58–90; PULSE 65–99; RESP 12–27; TEMP 36.3–36.9; O2SAT 98–99; BMI 22.1
--- NOTE | 2018-02-01 12:57 | PM.PREOP ---
Pre-operative Note Interval Note Pre-op Check: Yes History & Physical Reviewed by Physician and Yes Exam Performed Changes: No
--- NOTE | 2018-02-01 13:13 | PC.NURSE ---
Day shift: Pt not on AC unit at this time.
[2018-02-01] MEDS: CEFAZOLIN 2 GM/100 ML FROZ.PIGGY IV (13:24)
--- NOTE | 2018-02-01 13:28 | SUR.OPER ---
Supine on padded OR bed. Pillow under head, arms secured on padded armboards <90 degree abduction. Safety belt across torso. Non-operative leg secured with tape over blanket over lower leg. Operative leg secured in DeMayo positioner. Foam padded brace at thigh of operative leg.
--- NOTE | 2018-02-01 13:56 | SUR.OPER ---
ANTIBIOTIC GIVEN AFTER CULTURES TAKEN
--- NOTE | 2018-02-01 14:01 | P.OP_ITS ---
Operative Date/Time/Diagnoses Date of procedure: 02/01/18 Time of procedure: 13:45 Pre-op diagnosis: Right knee postoperative hematoma Post-op diagnosis: same Procedure & Clinicians Procedure: Incision and drainage of right knee postoperative hematoma Same procedure as scheduled: Yes Indications: The patient is a 77-year-old gentleman who underwent a right total knee replacement 17 days ago. He has had ongoing drainage from the operative site that has diminished but not entirely stopped. He was seen in the office today for wound check and it was felt that given the duration of time since the operation incision and drainage would be appropriate. The risks benefits and alternatives of surgery were discussed with him prior to proceeding. Risks discussed included but were not limited to: Potential infection of the prosthesis requiring additional operations and potentially removal of the prosthetic, stiffness, nerve damage, deep venous thrombosis, pulmonary embolism , myocardial infarction, permanent paralysis and . Surgeon: Hollis White Click Yes if Unassisted: Yes Anesthesia Type: General Operative Notes Findings: Subcutaneous hematoma with no extension to the knee joint itself. Closure Type: primary Specimen(s): other (The cultures from the subcutaneous hematoma were sent.) Implants & Drains: None. Estimated Blood Loss (mL): 10 Blood products transfused: none Tourniquet time (min): 8 Procedure in detail: The patient was seen in the preoperative area we identified his right knee as the operative site and this was marked with my initials. Preoperative antibiotics were withheld. He was taken to the operating room and placed on the operating room table in the supine position where he underwent induction with general anesthetic. A tourniquet was placed about his proximal right thigh. His right leg was prepared from the toes to the tourniquet with ChloraPrep in the usual fashion and draped through sterile drapes. The leg was elevated and exsanguinated with an Esmarch bandage and the tourniquet inflated to 250 mm of mercury. The previous surgical incision was reopened. The underlying hematoma was cultured and then evacuated. 2 g of Ancef were then given intravenously. Suture material from the subcutaneous closure was removed. I carefully inspected the base of the wound there was no evidence of communication between the subcutaneous hematoma and the joint itself. The wound was extensively irrigated with 3 L of pulsatile lavage. The tourniquet was deflated and hemostasis carefully obtained with electrocautery. Range of motion was evaluated and was 0-125 degrees. With the increased pressure in the joint due to full flexion there was no fluid exuded into the wound. The subcutaneous layer was closed with interrupted 3 O Vicryl the skin with roge. The wound was dressed with Xeroform, sterile 4x4s, cast padding and an Duarte wrap. The patient was subsequently transferred to the recovery room in good condition having tolerated the procedure well. Complications: none Condition: stable Disposition: PACU Plan for aftercare: The patient will be discharged home today. He will be given a 10 day supply of Septra DS to be taken b.i.d.. He will follow up in 1 week for repeat wound check. We will follow his cultures as an outpatient.
--- NOTE | 2018-02-01 14:10 | SUR.PHASEI ---
Patient reported intermittent pain 0-8 or 9/10. Declined pain medication.
--- NOTE | 2018-02-01 14:39 | SUR.PHASEII ---
DEBORA Wing, notified pt's urine cloudy, vvo for ua, pt notified. Oral juice and water provided. Report to LORNA Zaragoza.
--- NOTE | 2018-02-01 15:16 | PC.NURSE ---
per pacu nurse, patient was discharged for pacu. Patient never came up to the ac floor
[2018-02-01 15:44] LABS: Bacteria Urine None Seen
[2018-02-01 15:57] LABS: Appearance Urine UA CLEAR; Bilirubin Urine UA NEGATIVE (NEGATIVE); Color Urine UA YELLOW; Glucose Urine UA NEGATIVE (Normal); Ketones Urine UA NEGATIVE (NEGATIVE); Leukocyte Esterase Urine UA 2+ (NEGATIVE); Nitrite Urine UA POSITIVE (Negative); Occult Blood Urine UA 3+ (Negative); Protein Urine UA 2+ (Negative); Urobilinogen Urine UA 0.2 E.U./dL (0.2)
[2018-02-01 16:13] LABS: Culture Indicated Urine Specimen Cultured; RBC Urine 5-10/HPF (0-5/HPF); WBC Urine 10-30/HPF (0-5/HPF)
== END 2018-02-01 15:22 | disposition home or self-care (01) ==
LOC: OR 12:05 → AC 13:05
PROVIDERS: Physician Assistant Surgical; PCP Family Medicine; Visit Provider Orthopaedic Surgery
PROC: 0SRC0JZ Replacement of Right Knee Joint with Synthetic Substitute, Open Approach (ICD-10-PCS; CPT 27447; principal; 2018-02-01 12:30)
DX: M96.840 Postprocedural hematoma of a musculoskeletal structure following a musculoskeletal system procedure (principal); Z96.651 Presence of right artificial knee joint
CPT/HCPCS: 27301; 81001; 87070; 87075; 87077; 87086; 87147; 87186; 87205; J0690

== ENCOUNTER 2024-03-25 20:49 | Emergency (ER) | payer MEDICARE, SELFPAY ==
[2018-01-15 11:20] VITALS: BMI 23.6
[2024-03-25] VITALS (8 sets, daily range): BP systolic 149–166; BP diastolic 80–92; PULSE 77–100; RESP 14; TEMP 36.7; O2SAT 94–99; BMI 24.2
--- NOTE | 2024-03-25 20:49 | DI.RAD.S_ITS ---
PROCEDURE: XR HIP W PEL IF DONE LT 2V INDICATIONS: L hip pain after injury TECHNIQUE: AP pelvis with lateral view(s) of the left hip(s). COMPARISON: None. FINDINGS: Bones: Patient is status post prior bilateral total hip arthroplasty. Left hip alignment is anatomic. No gross hardware loosening or failure. No fractures or dislocations. Pelvic ring appears intact. No suspicious bony lesions. Postsurgical changes also seen in visualized lower lumbar spine. Soft tissues: The visualized bowel gas pattern is normal. No suspicious soft tissue calcifications. IMPRESSION: Prior bilateral total hip arthroplasty. Anatomic left hip alignment. No acute fracture or dislocation. No gross hardware loosening or failure. Dictated by: Luis E Boone M.D. on 03/25/2024 at 22:10 Approved by: Luis E Boone M.D. on 03/25/2024 at 22:10
--- NOTE | 2024-03-25 21:11 | PC.NURSE ---
Pt arrives by EMS. Pt is able to lift self to remove PJ bottoms. Firm tissue noted to left hip. Right hip is softer.
--- NOTE | 2024-03-25 21:31 | ED.LOWEXIN ---
HPI - Extremity Injury (Lower) <DO Kunal Donaldson Last Filed: 03/26/24 18:10> General Chief Complaint: Extremity Injury, Lower Stated Complaint: L hip pain Time Seen by Provider: 03/25/24 20:49 Source: patient and EMS Mode of arrival: EMS History of Present Illness HPI Narrative: Patient was an 83-year-old male. Has had bilateral hip replacements. Is here for evaluation of left hip pain. There was no specific injury. He states he woke up and tried to get up and had pain on the outside and back of his left hip. He was unable to stand. Normally uses a cane at baseline. No knee pain. No ankle pain. Received fentanyl and morphine by EMS prior to arrival. Related Data Home Medications Medication Instructions Recorded Confirmed aspirin 325 mg tablet 325 mg PO DAILY 01/06/18 01/15/18 atorvastatin 10 mg PO BEDTIME 01/06/18 01/15/18 bimatoprost 0.01 % eye drops 1 drp EYE-BOTH BEDTIME 01/06/18 01/15/18 (Carlos) tamsulosin 0.4 mg capsule 0.8 mg PO BEDTIME 01/06/18 01/15/18 timolol maleate 0.5 % eye drops 1 drp EYE-BOTH BID 01/06/18 01/15/18 Previous Rx's Medication Instructions Recorded oxycodone 5 mg tablet 5 mg PO Q3HR PRN Pain, Moderate 02/01/18 (4-6) #20 tabs sulfamethoxazole 800 1 tab PO BID #20 tabs 02/01/18 mg-trimethoprim 160 mg tablet diazepam 2 mg tablet (Valium) 2 mg PO BID PRN muscle spasm #14 03/26/24 tabs oxycodone-acetaminophen 5 mg-325 1 tab PO Q6H PRN pain #15 tabs 03/26/24 mg tablet (Percocet) Allergies Allergy/AdvReac Type Severity Reaction Status Date / Time No Known Drug Allergies Allergy Verified 01/06/18 09:02 Review of Systems <DO Kunal Donaldson Last Filed: 03/26/24 18:10> Review of Systems ROS Unobtainable: All systems reviewed & are unremarkable except as noted in HPI and below Musculoskeletal Musculoskeletal: Reports system reviewed and no additional complaints, except as documented Patient History <DO Kunal Donaldson Last Filed: 03/26/24 18:10> Medical History Glaucoma BPH (benign prostatic hyperplasia) Surgical History (Updated 01/06/18 @ 08:46 by Corina Silva RN) 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 S/P arthroscopy of right knee S/P lumbar fusion S/P cervical spinal fusion Social History household members: spouse Smoking Status: Never smoker alcohol intake: current Smoking Status: Never smoker alcohol intake frequency: a few times a week Exam <Guillaume Green DO - Last Filed: 03/26/24 18:10> Initial Vital Signs Initial Vital Signs: Vital Signs Pulse Rate 81 03/25/24 20:56 Blood Pressure 166/92 H 03/25/24 20:56 Pulse Oximetry 94 03/25/24 20:56 HENMT Head: normal to inspection and normocephalic Resp Effort & Inspection: normal respiratory effort Cardio Rate: regular rate Neuro Sensory Exam: no sensory deficits noted Extrem Other: Patient can flex and extend the left hip with some discomfort on the lateral aspect. It was left knee and left ankle unremarkable. Passively I can internally and externally rotate his left hip without discomfort. <Shira Napoles DO - Last Filed: 03/26/24 18:32> Initial Vital Signs Initial Vital Signs: Vital Signs Pulse Rate 81 03/25/24 20:56 Blood Pressure 166/92 H 03/25/24 20:56 Pulse Oximetry 94 03/25/24 20:56 Course <Guillaume Green DO - Last Filed: 03/26/24 18:10> Orders Ordered: Discontinued Medications Hydrocodone Bitart/Acetaminophen (Hydrocodone/Acet 5/325 Tablet) 1 tab PO NOW ONE Stop: 03/26/24 07:37 Last Admin: 03/26/24 07:50 Dose: 1 tab Documented By: SHIRIN Diazepam (Diazepam 2 Mg Tablet) 2 mg PO NOW ONE Stop: 03/26/24 03:07 Last Admin: 03/26/24 03:14 Dose: 2 mg Documented By: Hydromorphone HCl (Hydromorphone 1 Mg Inj) 1 mg IV NOW ONE Stop: 03/25/24 22:50 Last Admin: 03/25/24 23:05 Dose: 1 mg Documented By: Acetaminophen (Ofirmev) 1,000 mg in 100 mls @ 400 mls/hr IV NOW ONE Stop: 03/26/24 02:32 Last Infusion: 03/26/24 03:03 Dose: Infused Documented By: Admin: 03/26/24 02:36 Dose: 400 mls/hr Documented By: Ketorolac Tromethamine (Ketorolac 30 Mg/Ml Vial) 15 mg IV NOW ONE Stop: 03/26/24 02:19 Last Admin: 03/26/24 02:35 Dose: 15 mg Documented By: Lidocaine (Lidocaine 5% Patch) 1 each TOP NOW ONE Stop: 03/26/24 02:19 Last Admin: 03/26/24 02:36 Dose: 1 each Documented By: Morphine Sulfate (Morphine 4 Mg/Ml Inj) 4 mg IV NOW ONE Stop: 03/25/24 23:56 Last Admin: 03/26/24 00:05 Dose: 4 mg Documented By: Vital Signs Vital signs: Vital Signs - 8 hr 03/26/24 01:00 03/26/24 01:00 03/26/24 01:30 Pulse Rate 105 H 79 Blood Pressure 156/86 H Pulse Oximetry 96 98 Oxygen Delivery Method Room Air 03/26/24 02:00 03/26/24 02:00 03/26/24 02:30 Pulse Rate 78 78 Blood Pressure 163/74 H Pulse Oximetry 98 99 Oxygen Delivery Method 03/26/24 03:00 03/26/24 03:01 03/26/24 03:01 Pulse Rate 93 H 75 Blood Pressure 132/64 Pulse Oximetry 97 98 Oxygen Delivery Method Room Air 03/26/24 07:52 03/26/24 08:00 Pulse Rate 85 69 Blood Pressure Pulse Oximetry 97 Oxygen Delivery Method <Shira Napoles DO - Last Filed: 03/26/24 18:32> Orders Ordered: Discontinued Medications Hydrocodone Bitart/Acetaminophen (Hydrocodone/Acet 5/325 Tablet) 1 tab PO NOW ONE Stop: 03/26/24 07:37 Last Admin: 03/26/24 07:50 Dose: 1 tab Documented By: SHIRIN Diazepam (Diazepam 2 Mg Tablet) 2 mg PO NOW ONE Stop: 03/26/24 03:07 Last Admin: 03/26/24 03:14 Dose: 2 mg Documented By: Hydromorphone HCl (Hydromorphone 1 Mg Inj) 1 mg IV NOW ONE Stop: 03/25/24 22:50 Last Admin: 03/25/24 23:05 Dose: 1 mg Documented By: Acetaminophen (Ofirmev) 1,000 mg in 100 mls @ 400 mls/hr IV NOW ONE Stop: 03/26/24 02:32 Last Infusion: 03/26/24 03:03 Dose: Infused Documented By: Admin: 03/26/24 02:36 Dose: 400 mls/hr Documented By: Ketorolac Tromethamine (Ketorolac 30 Mg/Ml Vial) 15 mg IV NOW ONE Stop: 03/26/24 02:19 Last Admin: 03/26/24 02:35 Dose: 15 mg Documented By: Lidocaine (Lidocaine 5% Patch) 1 each TOP NOW ONE Stop: 03/26/24 02:19 Last Admin: 03/26/24 02:36 Dose: 1 each Documented By: Morphine Sulfate (Morphine 4 Mg/Ml Inj) 4 mg IV NOW ONE Stop: 03/25/24 23:56 Last Admin: 03/26/24 00:05 Dose: 4 mg Documented By: Vital Signs Vital signs: Vital Signs - 8 hr 03/26/24 01:00 03/26/24 01:00 03/26/24 01:30 Pulse Rate 105 H 79 Blood Pressure 156/86 H Pulse Oximetry 96 98 Oxygen Delivery Method Room Air 03/26/24 02:00 03/26/24 02:00 03/26/24 02:30 Pulse Rate 78 78 Blood Pressure 163/74 H Pulse Oximetry 98 99 Oxygen Delivery Method 03/26/24 03:00 03/26/24 03:01 03/26/24 03:01 Pulse Rate 93 H 75 Blood Pressure 132/64 Pulse Oximetry 97 98 Oxygen Delivery Method Room Air 03/26/24 07:52 03/26/24 08:00 Pulse Rate 85 69 Blood Pressure Pulse Oximetry 97 Oxygen Delivery Method MDM - Extremity Injury (Lower) <Guillaume Green DO - Last Filed: 03/26/24 18:10> Imaging Data Extremity x-ray #1: Radiologist's Impression: PROCEDURE: XR HIP W PEL IF DONE LT 2V INDICATIONS: L hip pain after injury TECHNIQUE: AP pelvis with lateral view(s) of the left hip(s). COMPARISON: None. FINDINGS: Bones: Patient is status post prior bilateral total hip arthroplasty. Left hip alignment is anatomic. No gross hardware loosening or failure. No fractures or dislocations. Pelvic ring appears intact. No suspicious bony lesions. Postsurgical changes also seen in visualized lower lumbar spine. Soft tissues: The visualized bowel gas pattern is normal. No suspicious soft tissue calcifications. IMPRESSION: Prior bilateral total hip arthroplasty. Anatomic left hip alignment. No acute fracture or dislocation. No gross hardware loosening or failure. [facility] Narrative Medical decision making narrative: Do have low suspicion for fractures the patient did not fall. His x-ray shows no acute pathology and he can have movement his left hip without discomfort here in the ER. After pain medication patient refuses the stand up on his left hip because of the pain that he was having. Received multiple doses of pain medication but patient still states he was in too much pain to stand up. I do feel that we can hold on CT scan for now because once again I have low suspicion for fracture. Because the patient was unwilling to stand he will stay in the emergency department this evening and if physical therapy consult will be placed. Care turned over today provider to follow up and disposition. <Shira Napoles, DO - Last Filed: 03/26/24 18:32> [facility] Narrative Medical decision making narrative: Do have low suspicion for fractures the patient did not fall. His x-ray shows no acute pathology and he can have movement his left hip without discomfort here in the ER. After pain medication patient refuses the stand up on his left hip because of the pain that he was having. Received multiple doses of pain medication but patient still states he was in too much pain to stand up. I do feel that we can hold on CT scan for now because once again I have low suspicion for fracture. Because the patient was unwilling to stand he will stay in the emergency department this evening and if physical therapy consult will be placed. Care turned over today provider to follow up and disposition. Patient signed out to me by Dr. Green I have seen evaluated patient myself. Reports he is chronic back pain has had an MRI within the last 2-3 weeks has spine surgeon in [place] has chronic back pain and fusion in his lumbar spine presenting today with left buttock pain. He reports that he went for his walk yesterday sat on the couch and watch TV got up from the chair and had instant pain in his buttock pain radiating down to his left leg. No loss of urine or stool. He has had 2 spinal injections over the last few weeks but denies any sort of fever chills or illness. After last night multiple pain medications he is able to stand at bedside and ambulate. It is difficult for him to put weight on his left leg due to severe pain in his buttock but he feels like he can go home. He has a walker. Do not feel like this is an epidural abscess or hematoma no evidence of cauda equina. I do not think he needs any further imaging at this time. He reports it Valium helped him significantly early this morning in the [place] has helped as well. Discharge Plan Departure Patient Disposition: Home Clinical Impression: Left hip pain Instructions: DI for Hip Pain Activity Restrictions/Additional Instructions: *You have been diagnosed with back spasm *What to do: At this time increase activity as tolerated try heat and ice pack. I do recommend that you call your surgeon on Thursday *Continue to take medications as directed Percocet 1 tablet every 4-6 hours if needed for severe pain Valium 2 mg every 12 hours needed for muscle spasm *Follow up with your primary care provider in 2-3 days or call [phone] Call your surgeon on Thursday to schedule follow-up *Return to ER if you should have increased weakness loss of urine increased back pain fever or any new, worsening or concerning symptoms CONTROLLED SUBSTANCE DISCHARGE (Narcotoic/benzodiazepine/Flexeril/Phenergan) 1. You have been prescribed narcotic medications, it does have acetaminophen/Tylenol/paracetamol in it, DO NOT TAKE MORE THAN 4,00mg in 24 hours of Tylenol. TRAMADOL DOES NOT CONTAIN TYLENOL 2. Please understand that we cannot provide further refills of narcotics, benzodiazepines or controlled substances through the ED and her pain management will need to be through your provider. 3. While on these medications you cannot drive or operate heavy machinery. 4. You cannot sign legal documents or perform any duties such as this. 5. As long as you're taking opiate pain medications he should also be taking a stool softener such as Colace, Dulcolax, MiraLAX or prune juice, to help avoid constipation. Prescriptions: New oxycodone-acetaminophen [Percocet] 5-325 mg tablet 1 tab PO Q6H PRN (Reason: pain) Qty: 15 0RF diazepam [Valium] 2 mg tablet 2 mg PO BID PRN (Reason: muscle spasm) Qty: 14 0RF No Action aspirin 325 mg Tablet 325 mg PO DAILY tamsulosin 0.4 mg Capsule 0.8 mg PO BEDTIME timolol maleate 0.5 % Drops 1 drp EYE-BOTH BID bimatoprost [Lumigan] 0.01 % Drops 1 drp EYE-BOTH BEDTIME atorvastatin 10 mg PO BEDTIME oxycodone 5 mg Tablet 5 mg PO Q3HR PRN (Reason: Pain, Moderate (4-6)) Qty: 20 0RF sulfamethoxazole-trimethoprim 800-160 mg Tablet 1 tab PO BID Qty: 20 0RF Referrals: Baljit Price MD [Primary Care Provider] - Stand Alone Forms: Patient Portal/API/Survey
[2024-03-25] MEDS: HYDROMORPHONE 1 MG INJ IV (23:05)
[2024-03-26] VITALS (12 sets, daily range): BP systolic 132–163; BP diastolic 64–86; PULSE 69–105; RESP 16; TEMP 36.6; O2SAT 96–99
[2024-03-26] MEDS: MORPHINE 4 MG/ML INJ IV (00:05)
[2024-03-26] MEDS: KETOROLAC 30 MG/ML VIAL 15 MG IV (02:35)
[2024-03-26] MEDS: ACETAMINOPHEN IV 1,000 MG/100 ML VIAL 400 MG IV (02:36)
[2024-03-26] MEDS: LIDOCAINE 5% PATCH 1 EACH TOP (02:36)
[2024-03-26] MEDS: diazePAM 2 MG TABLET PO (03:14)
--- NOTE | 2024-03-26 04:26 | PC.NURSE ---
Pt has uncontrolled pain especially worse with movement. Pt will stay for observation until can be evaluated by PT in the morning.
[2024-03-26] MEDS: HYDROCODONE/ACET 5/325 TABLET 1 TAB PO (07:50)
--- NOTE | 2024-03-26 07:53 | PC.NURSE ---
Left hip pain. Lidocaine patch on left hip. Pt reports the pain started up last night.Pt states when he moves he feels the pain radiate down his legs. Pt states the PO valium helped the most with pain; MD made aware. Pt to be consulted with PT. Respirations regular and unlabored. Pulses intact. Pt able to move leg w/ discomfort.
--- NOTE | 2024-03-26 09:40 | PT-IP ANOTE ---
PT eval order received. EMR reviewed. Checked down in ED and nursing staff stated that pt is discharging. Per nurse, no PT needs. will d/c PT eval order.
== END 2024-03-26 10:24 | disposition home or self-care (01) ==
PROVIDERS: Emergency Provider Emergency Medicine; PCP Family Medicine
DX: M25.552 Pain in left hip (principal); M62.830 Muscle spasm of back; Z96.643 Presence of artificial hip joint, bilateral
CPT/HCPCS: 73502; 96365; 96375; 99284; J0131; J1171; J1885; J2270

== ENCOUNTER → 2024-09-14 10:39 | Outpatient (CLI) | payer MEDICARE, SELFPAY ==
[2024-08-02 12:59] VITALS: BMI 23.6
--- NOTE | 2024-09-14 10:40 | DI.CT.S_ITS ---
PROCEDURE: CT PEL WO CON INDICATIONS: evaluate bilateral hip pain, s/p bilateral BHAVIN TECHNIQUE: Noncontrast 3 mm axial sections acquired through the bony pelvis, with coronal and sagittal reformatting. COMPARISON: [facility], CR, XR HIP W PEL IF DONE LT 2V, 03/25/2024, 21:24. FINDINGS: Image quality: Excellent. Bones: Bilateral total hip arthroplasties. Hardware components are in expected position. No significant lucencies at the bone-hardware interface is. No periprosthetic fracture. No osseous pelvis fracture. Partially visualized lower lumbar spine fixation hardware. Lower lumbar spine degenerative disc disease and facet arthropathy. Soft tissues: Large and small bowel loops have normal caliber. Numerous diverticula in the visualized colon without evidence of diverticulitis. Partially visualized nonobstructing left renal stone. Scattered atherosclerotic calcifications the pelvic vasculature. No free fluid or air in the pelvis. Hernia mesh in the anterior lower pelvic wall. IMPRESSION: Bilateral hip arthroplasties with hardware components in expected position. No periprosthetic fracture. No CT evidence of hardware loosening or infection. Dictated by: Flora Shaw MD, PhD on 09/14/2024 at 12:11 Approved by: Flora Shaw MD, PhD on 09/14/2024 at 12:14
== END ==
LOC: CT 10:39
PROVIDERS: PCP Family Medicine; Referring Provider Orthopaedic Surgery Adult Reconstructive Orthopaedic Surgery; Visit Provider Orthopaedic Surgery Adult Reconstructive Orthopaedic Surgery
DX: M25.551 Pain in right hip (principal); M25.552 Pain in left hip; M51.369 Other intervertebral disc degeneration, lumbar region without mention of lumbar back pain or lower extremity pain; M47.816 Spondylosis without myelopathy or radiculopathy, lumbar region; N20.0 Calculus of kidney; I70.8 Atherosclerosis of other arteries; Z98.1 Arthrodesis status; Z96.643 Presence of artificial hip joint, bilateral
CPT/HCPCS: 72192

== ENCOUNTER → 2024-10-13 12:23 | Outpatient (CLI) | payer MEDICARE, SELFPAY ==
[2024-08-02 12:59] VITALS: BMI 23.6
== END ==
LOC: PHYS 12:25
PROVIDERS: PCP Family Medicine; Referring Provider Orthopaedic Surgery Orthopaedic Surgery of the Spine; Visit Provider Orthopaedic Surgery Orthopaedic Surgery of the Spine
DX: M48.062 Spinal stenosis, lumbar region with neurogenic claudication (principal); M51.369 Other intervertebral disc degeneration, lumbar region without mention of lumbar back pain or lower extremity pain
CPT/HCPCS: 95886; 95910